=== PATIENT | female | born 1995 | race Caucasian/White ===

== ENCOUNTER 2018-07-05 18:28 | Emergency (ER) | payer SELFPAY ==
[~2018-07-05] VITALS: Ht 160 cm; Wt 52.0 kg
[2018-07-05] MEDS ORDERED: IBUPROFEN 400MG TABLET PO ONE (21:15)
[2018-07-05] MEDS: CLINDAMYCIN PHOSPHATE 600MG/4ML VIAL IM ONE ×2 (21:29→21:32)
[2018-07-05 21:39] VITALS: BP 134/78
== END 2018-07-06 05:18 | disposition home or self-care (01) ==
LOC: ER 18:28
DX: L02.01 Cutaneous abscess of face (principal); I10 Essential (primary) hypertension; F41.9 Anxiety disorder, unspecified; F31.9 Bipolar disorder, unspecified; Z88.1 Allergy status to other antibiotic agents
CPT/HCPCS: 99283; J3490